=== PATIENT | male | born 2000 | race Caucasian/White ===

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

== ENCOUNTER 2018-01-08 09:10 | Outpatient (CLI) | payer OTHER, MEDICAID ==
--- NOTE | 2018-01-08 13:59 | XRAY Report ---
THREE VIEW LEFT SHOULDER: 01/08/2018 CLINICAL INDICATION: Pain. FINDINGS: Internal and external rotational views and a scapular Y view of the left shoulder demonstrate no evidence of fracture or dislocation. The joint spaces are preserved. No radiopaque foreign body is seen in the soft tissues. IMPRESSION: NORMAL LEFT SHOULDER. TD: 01/08/2018 13:58
== END 2018-01-08 09:11 | disposition home or self-care (01) ==
LOC: DI 09:10
PROVIDERS: ATTEND Physician Assistant Medical
DX: M25.512 Pain in left shoulder (principal)

== ENCOUNTER 2018-05-28 08:00 | Outpatient (CLI) | payer OTHER, MEDICAID ==
[2018-05-28 12:47] LABS: BASOPHILS % (AUTO) 0.6 %; EOSINOPHILS # (AUTO) 0.1 10^3/uL (0.0-0.7); EOSINOPHILS % (AUTO) 2.4 %; HGB - HEMOGLOBIN 15.5 g/dL (14.0-18.0); LYMPHOCYTES # (AUTO) 2.2 10^3/uL (1.5-3.5); LYMPHOCYTES % (AUTO) 35.5 %; MEAN CORPUSCULAR HEMOGLOBIN 30.2 pg (27.0-31.0); MEAN CORPUSCULAR HGB CONC 34.1 g/dL (32.0-36.0); MEAN CORPUSCULAR VOLUME 88.4 fL (80.0-94.0); MEAN PLATELET VOLUME 9.2 fL (7.4-11.4); MONOCYTES # (AUTO) 0.6 10^3/uL (0.0-1.0); MONOCYTES % (AUTO) 10.5 %; NEUTROPHILS # (AUTO) 3.1 10^3/uL (1.5-6.6); PLT - PLATELET COUNT 196 10^3/uL (130-450); RED BLOOD COUNT 5.12 10^6/uL (4.70-6.10); RED CELL DISTRIBUTION WIDTH 12.9 % (12.0-15.0); WHITE BLOOD COUNT 6.1 x10^3/uL (4.8-10.8)
[2018-05-28 12:49] LABS: ALBUMIN 4.7 g/dL (3.2-5.5); ALBUMIN/GLOBULIN RATIO 1.5 (1.0-2.2); BILIRUBIN,TOTAL 0.7 mg/dL (0.2-1.0); CALCIUM 9.9 mg/dL (8.5-10.3); CREATININE 0.6 mg/dL (0.6-1.2); TOTAL PROTEIN 7.8 g/dL (6.7-8.2)
== END 2018-05-28 08:01 | disposition home or self-care (01) ==
LOC: LAB.N 08:00
PROVIDERS: ATTEND Physician Assistant Medical
DX: R10.12 Left upper quadrant pain (principal); G40.909 Epilepsy, unspecified, not intractable, without status epilepticus
CPT/HCPCS: 36415; 80053; 84443; 85025

== ENCOUNTER → 2018-05-28 | Outpatient (CLI) | payer OTHER, MEDICAID | LOC: RT.N 08:48 | PROVIDERS: ATTEND Physician Assistant Medical | DX: R07.9 Chest pain, unspecified (principal) | CPT/HCPCS: 93005 ==

== ENCOUNTER 2018-05-31 09:06 | Outpatient (CLI) | payer OTHER, MEDICAID ==
--- NOTE | 2018-05-31 11:54 | Ultrasound Report ---
Procedure Date: 05/31/2018 Accession Number: [id number] / [id number] Procedure: US - Abdomen Limited CPT Code: FULL RESULT: EXAM: ABDOMEN ULTRASOUND LIMITED, RUQ EXAM DATE: 05/31/2018 09:35 AM. CLINICAL HISTORY: ABDOMINAL PAIN, LUQ. COMPARISON: None. TECHNIQUE: Real-time scanning was performed with static images obtained. FINDINGS: Left upper quadrant scanned. Spleen measures 13.0 x 4.8 x 11.8 cm for a volume of 385 cc. Left kidney demonstrates no hydronephrosis. No fluid collections. IMPRESSION: Splenomegaly. [facility]
== END 2018-05-31 09:07 | disposition home or self-care (01) ==
LOC: DI 09:06
PROVIDERS: ATTEND Physician Assistant Medical
DX: R16.1 Splenomegaly, not elsewhere classified (principal); R10.12 Left upper quadrant pain
CPT/HCPCS: 76705

== ENCOUNTER 2018-06-09 09:23 | Outpatient (CLI) | payer OTHER, MEDICAID | END 2018-06-09 09:24 | disposition home or self-care (01) | LOC: LAB.N 09:23 | PROVIDERS: ATTEND Physician Assistant Medical | DX: R16.1 Splenomegaly, not elsewhere classified (principal) | CPT/HCPCS: 36415; 86308 ==

== ENCOUNTER 2018-06-09 09:23 | Outpatient (CLI) | payer OTHER, MEDICAID ==
--- NOTE | 2018-06-09 14:18 | XRAY Report ---
Procedure Date: 06/09/2018 Accession Number: [id number] / [id number] Procedure: XRN - Abdomen 2 View X-Ray CPT Code: 02927 FULL RESULT: EXAM: Abdomen 2 View X-Ray DATE: 06/09/2018 9:53 AM CLINICAL HISTORY: ABDOMIAL PAIN COMPARISON: None. TECHNIQUE: 2 views. FINDINGS: Lung Bases: Unremarkable. Bowel Gas Pattern: Within normal limits. No dilated loops or abnormal fluid levels. Free Air: None. Other: None. IMPRESSION: Normal 2-view abdomen x-ray. [facility]
--- NOTE | 2018-06-09 14:19 | XRAY Report ---
Procedure Date: 06/09/2018 Accession Number: [id number] / [id number] Procedure: XRN - Chest 2 View X-Ray CPT Code: 43511 FULL RESULT: EXAM: Chest 2 View X-Ray DATE: 06/09/2018 9:53 AM CLINICAL HISTORY: ABDOMINAL PAIN COMPARISON: None. TECHNIQUE: 2 views. FINDINGS: Lungs/Pleura: No focal opacities evident. No pneumothorax or pleural effusion. Normal volumes. Mediastinum: Heart and mediastinal contours are unremarkable. Other: None. IMPRESSION: Normal 2-view chest radiography. [facility]
== END 2018-06-09 09:24 | disposition home or self-care (01) ==
LOC: DI.N 09:23
PROVIDERS: ATTEND Physician Assistant Medical
DX: R10.12 Left upper quadrant pain (principal); R16.1 Splenomegaly, not elsewhere classified
CPT/HCPCS: 36415; 71046; 74019; 86308

== ENCOUNTER 2018-06-11 08:00 | Outpatient (CLI) | payer OTHER, MEDICAID ==
[2018-06-11 12:35] LABS: BASOPHILS % (AUTO) 0.5 %; EOSINOPHILS # (AUTO) 0.2 10^3/uL (0.0-0.7); EOSINOPHILS % (AUTO) 2.7 %; LYMPHOCYTES # (AUTO) 2.6 10^3/uL (1.5-3.5); LYMPHOCYTES % (AUTO) 43.8 %; MEAN CORPUSCULAR HEMOGLOBIN 30.4 pg (27.0-31.0); MEAN CORPUSCULAR HGB CONC 34.2 g/dL (32.0-36.0); MEAN CORPUSCULAR VOLUME 88.9 fL (80.0-94.0); MEAN PLATELET VOLUME 9.6 fL (7.4-11.4); MONOCYTES # (AUTO) 0.5 10^3/uL (0.0-1.0); MONOCYTES % (AUTO) 8.3 %; NEUTROPHILS # (AUTO) 2.7 10^3/uL (1.5-6.6); NEUTROPHILS % (AUTO) 44.7 %; PLT - PLATELET COUNT 190 10^3/uL (130-450); RED BLOOD COUNT 4.92 10^6/uL (4.70-6.10); RED CELL DISTRIBUTION WIDTH 12.9 % (12.0-15.0)
[2018-06-11 12:59] LABS: PLATELET ESTIMATE, MANUAL NORMAL (130-450,000) (NORMAL); PLATELET MORPHOLOGY RARE LARGE PLATELETS (NORMAL); RBC MORPHOLOGY (MULTIPLE) NORMAL APPEARANCE (NORMAL)
[2018-06-11 13:11] LABS: ALBUMIN 4.1 g/dL (3.2-5.5); ALBUMIN/GLOBULIN RATIO 1.4 (1.0-2.2); BILIRUBIN,TOTAL 0.8 mg/dL (0.2-1.0); CALCIUM 9.4 mg/dL (8.5-10.3); CREATININE 0.7 mg/dL (0.6-1.2); TOTAL PROTEIN 7.1 g/dL (6.7-8.2)
== END 2018-06-11 08:01 | disposition home or self-care (01) ==
LOC: LAB.N 08:00
PROVIDERS: ATTEND Physician Assistant Medical
DX: R16.1 Splenomegaly, not elsewhere classified (principal); R10.12 Left upper quadrant pain
CPT/HCPCS: 36415; 80053; 82150; 83690; 85025

== ENCOUNTER 2018-06-13 07:53 | Outpatient (CLI) | payer MEDICAID, OTHER ==
[2018-06-13] MEDS ORDERED: IOPAMIDOL-300 50 ML VIAL ONE (08:09)
[2018-06-13] MEDS ORDERED: IOPAMIDOL-300 100 ML VIAL ONE (08:09)
[2018-06-13] MEDS ORDERED: IOPAMIDOL-300 100 ML VIAL IVP ONE (09:53)
[2018-06-13] MEDS ORDERED: IOPAMIDOL-300 50 ML VIAL PO ONE (09:53)
--- NOTE | 2018-06-13 10:14 | CT Report ---
Procedure Date: 06/13/2018 Accession Number: [id number] / [id number] Procedure: CT - Chest W/ CPT Code: FULL RESULT: EXAM: CT CHEST EXAM DATE: 06/13/2018 09:34 AM. CLINICAL HISTORY: SPLENOMEGALY,ABDOMINAL PAIN,LUQ. Melanoma. Aortic valve disorder. COMPARISONS: Thoracic spine films 12/28/2017. TECHNIQUE: Routine helical CT imaging was performed through the chest. IV contrast: 100 mL Isovue 300. Reconstructions: Coronal and sagittal. Coronal MIP reconstructions. In accordance with CT protocol optimization, one or more of the following dose reduction techniques were utilized for this exam: automated exposure control, adjustment of mA and/or KV based on patient size, or use of iterative reconstructive technique. FINDINGS: Lungs/Pleura: No pleural effusion. No pneumothorax. No focal consolidation. Pulmonary vascularity appears normal. Noncalcified lung nodules are seen. Sample nodules measured on series 4: 1. 3 mm right middle lobe image 35. 2. 3 mm right upper lobe abutting minor fissure image 29. 3. 4 mm left lower lobe image 36. Mediastinum: Mixed soft tissue/fat attenuation anterior mediastinum most consistent with residual thymic tissue. Retained biconcave appearance of anterior mediastinal contour. Area of probable thymic soft tissue measures up to 4.5 x 2.9 x 7.1 cm series 3 image 22 and sagittal image 38. No additional mass. No adenopathy. Heart size normal. Aorta caliber is normal with normal enhancement. Bones: Unremarkable. Visualized Abdomen: Abdomen dictated separately Other: None. IMPRESSION: 1. Small nonspecific noncalcified lung nodules bilaterally. Largest nodule 4 mm diameter. No adenopathy. In a patient with a submitted history of melanoma, possibility of metastasis is not excluded. No prior study is currently available to assess stability. Clinical correlation is needed. Follow-up is recommended. 2. Anterior mediastinal soft tissue most consistent with residual thymic tissue. Nonspecific finding in a young adult. No additional mediastinal mass or adenopathy. 3. No acute abnormality otherwise seen. Exam as detailed above. CT abdomen pelvis dictated separately. [facility]
--- NOTE | 2018-06-13 10:19 | CT Report ---
Procedure Date: 06/13/2018 Accession Number: [id number] / [id number] Procedure: CT - Abdomen/Pelvis W/ CPT Code: FULL RESULT: EXAM: CT ABDOMEN AND PELVIS EXAM DATE: 06/13/2018 09:34 AM. CLINICAL HISTORY: SPLENOMEGALY, ABDOMINAL PAIN, LUQ, AORTIC VALVE DI. COMPARISONS: Ultrasound 05/31/2018. CT chest 06/13/2018 TECHNIQUE: Routine helical CT imaging was performed through the abdomen and pelvis. IV contrast: CE. Enteric contrast: No. Reconstructions: Coronal and sagittal. In accordance with CT protocol optimization, one or more of the following dose reduction techniques were utilized for this exam: automated exposure control, adjustment of mA and/or KV based on patient size, or use of iterative reconstructive technique. FINDINGS: Lung Bases: Chest CT dictated separately Liver: Normal. No masses. Gallbladder/Bile Ducts: Unremarkable. Spleen: 13.9 cm long axis. Mild splenomegaly. No focal mass. Similar appearance on prior ultrasound. Pancreas: Normal. Adrenal Glands: Normal. Kidneys: Normal. No stones. No masses or hydronephrosis. Ureters unremarkable. Peritoneal Cavity/Bowel: In the distal colon with associated mild rectal distention. No free fluid, free air or adenopathy. No masses or acute inflammatory process. The appendix is well visualized and normal. Pelvic Organs: Mild distention of urinary bladder. Prostate and seminal vesicles unremarkable. No mass. Vasculature: No aneurysms or other significant abnormality. Bones: No significant abnormality. Other: None. IMPRESSION: 1. Large volume of stool in the distal colon with stool filled and mildly distended rectum. Bowel otherwise appears unremarkable. No mass, obstruction or inflammatory change. 2. No acute abnormality otherwise seen in the abdomen and pelvis. No finding suspicious for malignancy. Examination otherwise as detailed above. 3. CT chest dictated separately. [facility]
== END 2018-06-13 07:54 | disposition home or self-care (01) ==
LOC: DI 07:53
PROVIDERS: ATTEND Physician Assistant Medical
DX: R16.1 Splenomegaly, not elsewhere classified (principal); R10.12 Left upper quadrant pain; R07.89 Other chest pain; I35.9 Nonrheumatic aortic valve disorder, unspecified; C43.9 Malignant melanoma of skin, unspecified; R91.8 Other nonspecific abnormal finding of lung field
CPT/HCPCS: 71260; 74177; Q9967

== ENCOUNTER 2018-06-25 08:00 | Outpatient (CLI) | payer MEDICAID | END 2018-06-25 08:01 | disposition home or self-care (01) | LOC: LAB.R 08:00 | PROVIDERS: ATTEND Physician Assistant Medical | DX: R11.10 Vomiting, unspecified (principal); R10.13 Epigastric pain; R16.1 Splenomegaly, not elsewhere classified | CPT/HCPCS: 83013 ==

== ENCOUNTER 2018-10-27 15:54 | Outpatient (CLI) | payer OTHER, MEDICAID ==
--- NOTE | 2018-10-27 21:25 | XRAY Report ---
Reason: PAIN IN FOOT Procedure Date: 10/27/2018 Accession Number: [id number] / [id number] Procedure: XRN - Foot 3 View LT CPT Code: FULL RESULT: EXAM: LEFT FOOT RADIOGRAPHY EXAM DATE: 10/27/2018 04:04 PM. CLINICAL HISTORY: PAIN IN FOOT. COMPARISON: None. TECHNIQUE: 3 views. FINDINGS: Bones: Normal. No fractures or bone lesions. Joints: Pes planus on the lateral view. No osteoarthritis. Soft Tissues: Normal. No soft tissue swelling. IMPRESSION: No evidence of acute fracture. [facility]
== END 2018-10-27 15:55 | disposition home or self-care (01) ==
LOC: DI.N 15:54
PROVIDERS: ATTEND Physician Assistant Medical
DX: M79.672 Pain in left foot (principal)